=== PATIENT | female | born 1970 | race Caucasian/White ===

== ENCOUNTER 2016-04-22 14:43 | Emergency (ER) | payer OTHER ==
[~2016-04-22] VITALS: Ht 160 cm; Wt 61.4 kg
[2016-04-22] MEDS ORDERED: PERTUSS(ACELL),DIPH,TET VAC/PF 0.5 ML VIAL IM ONE (16:00)
[2016-04-22 17:16] VITALS: BP 128/82
== END 2016-04-22 17:17 | disposition home or self-care (01) ==
LOC: EMS 14:46
DX: S91.332A Puncture wound without foreign body, left foot, initial encounter (principal); W22.8XXA Striking against or struck by other objects, initial encounter; Y93.01 Activity, walking, marching and hiking; Y92.89 Other specified places as the place of occurrence of the external cause; Y99.8 Other external cause status
CPT/HCPCS: 90471; 90715; 99284